=== PATIENT | female | born 1990 | race Caucasian/White ===

== ENCOUNTER 2019-07-22 17:32 | Emergency (ER) | payer OTHER ==
[~2019-07-22] VITALS: Ht 152.4 cm; Wt 54.4 kg
[2019-07-22] MEDS ORDERED: LEVO750T13 PO (17:39)
[2019-07-22] MEDS ORDERED: OXYC1TAB23 PO (17:39)
[2019-07-22] MEDS ORDERED: PROM25TA12 PO (17:39)
[2019-07-22] MEDS ORDERED: KETO10TAB PO ×2 (17:39→21:10)
[2019-07-22 19:00] LABS: BASO % 0.4 % (0.0-1.0); EOS # 0.2 10^3/uL (0.0-0.5); EOS % 2.3 % (0.0-3.0); HEMATOCRIT 39.7 % (36.0-47.0); HEMOGLOBIN 12.8 g/dl (12.0-15.5); LYMPH % 30.7 % (24.0-44.0); MEAN CORPUSCULAR HEMOGLOBIN 26.8 pg (27.0-33.0); MEAN CORPUSCULAR HGB CONC 32.2 g/dl (32.0-36.5); MEAN CORPUSCULAR VOLUME 83.1 fl (80.0-96.0); MONO # 0.4 10^3/uL (0.0-0.8); MONO % 4.4 % (0.0-5.0); NEUTROPHILS % 61.9 % (36.0-66.0); PLATELET COUNT, AUTOMATED 318 10^3/uL (150-450); RED BLOOD COUNT 4.78 10^6/uL (4.00-5.40); WHITE BLOOD COUNT 9.7 10^3/uL (4.0-10.0)
[2019-07-22 19:18] LABS: BLOOD UREA NITROGEN 9 MG/DL (7-18); CALCIUM LEVEL 9.3 MG/DL (8.5-10.1); CARBON DIOXIDE LEVEL 27 MEQ/L (21-32); CHLORIDE LEVEL 108 MEQ/L (98-107); CREATININE FOR GFR 0.69 MG/DL (0.55-1.30); GLOMERULAR FILTRATION RATE > 60.0 (>60); GLUCOSE, FASTING 83 MG/DL (70-100); POTASSIUM SERUM 4.1 MEQ/L (3.5-5.1); SODIUM LEVEL 142 MEQ/L (136-145)
[2019-07-22 19:19] LABS: HCG, SERUM QUALITATIVE NEGATIVE (NEGATIVE)
--- NOTE | 2019-07-22 19:30 | REP ---
KUB, ABDOMEN AND PELVIS: KUB film of the abdomen and pelvis performed. Bowel gas pattern is normal. IUD is seen centrally in the pelvis. A calcific density in the right pelvis measures 5 mm in diameter. This could possibly represent a distal ureteral calculus, or a phlebolith. Electronically Signed by Basil Yeh MD 07/22/2019 07:31 P
[2019-07-22 19:45] VITALS: BP 132/76
--- NOTE | 2019-07-22 20:39 | REPVR ---
PROCEDURE INFORMATION: Exam: US Retroperitoneal Limited, Kidneys Exam date and time: 07/22/2019 8:09 PM Age: 29 years old Clinical indication: Abdominal pain; Flank; Other: Bilateral; Additional info: Bilateral stones; R/O worsening hydronephrosis TECHNIQUE: Imaging protocol: Real-time ultrasound of the retroperitoneum with image documentation. Examination was focused on the kidneys. COMPARISON: CR Abdomen,Flat Plate KUB 07/22/2019 6:53 PM FINDINGS: Right kidney: Right kidney measures 10 x 4.2 x 4 cm. Echogenic renal pyramids demonstrated. Left kidney: Left kidney measures 10.9 x 5.1 x 6.3 cm. Echogenic renal pyramids demonstrated. Bladder: Bladder unremarkable although not fully distended. IMPRESSION: Bilateral echogenic renal pyramids, a finding which can be associated with medullary sponge kidney. Kidneys are otherwise unremarkable. Electronically signed by: Ion Richter On 07/22/2019 20:38:47 PM
[2019-07-22] MEDS ORDERED: FLOM0.4C39 PO (21:10)
[2019-07-22] MEDS ORDERED: TAMSULOSIN 0.4 MG CAP PO ONE (21:15)
[2019-07-22] MEDS ORDERED: KETOROLAC TROMETHAMINE 10 MG TAB PO ONE (21:15)
--- NOTE | 2019-07-25 08:28 | ED PDOC ---
Post-Departure Follow-Up ft romana saeed faxed formal report of renal us for fu Allison Pearl MD Jul 25, 2019 08:28
== END 2019-07-22 21:22 | disposition home or self-care (01) ==
LOC: M ED 17:32
DX: N20.1 Calculus of ureter (principal); F17.200 Nicotine dependence, unspecified, uncomplicated